=== PATIENT | male | born 1975 | race Caucasian/White ===

== ENCOUNTER 2020-01-17 12:05 | Outpatient (REF) | payer OTHER, SELFPAY | END 2020-01-17 12:06 | disposition home or self-care (01) | LOC: HO.LAB 12:05 | PROVIDERS: Visit Provider Internal Medicine | DX: Z20.828 Contact with and (suspected) exposure to other viral communicable diseases (principal) | CPT/HCPCS: 87635 ==

== ENCOUNTER 2020-04-18 15:10 | Outpatient (REF) | payer OTHER, SELFPAY | END 2020-04-18 15:11 | disposition home or self-care (01) | LOC: HO.LAB 15:10 | PROVIDERS: Visit Provider Internal Medicine | DX: Z20.822 Contact with and (suspected) exposure to COVID-19 (principal) | CPT/HCPCS: 36415; C9803; U0003 ==

== ENCOUNTER 2020-06-29 15:50 | Outpatient (REF) | payer OTHER, SELFPAY ==
--- NOTE | ~2020-06-29 | XR_ITS ---
EXAMINATION: XR KNEE, BILATERAL CLINICAL INFORMATION: Pain in bilateral knee. COMPARISON: None TECHNIQUE: 4 views each knee. FINDINGS: Left knee: There is no visible acute fracture, dislocation or subluxation. The tricompartment joint space is maintained normal. No bony erosive changes, loose bodies or joint effusion seen. Right knee: There is no visible acute fracture, dislocation or subluxation. The tricompartment joint space is maintained normal. There are no bony erosive changes, loose bodies or joint effusion. XR/XR knee LT 3V IMPRESSION: Unremarkable bilateral knee exam.
--- NOTE | ~2020-06-29 | XR_ITS ---
EXAMINATION: XR KNEE, BILATERAL CLINICAL INFORMATION: Pain in bilateral knee. COMPARISON: None TECHNIQUE: 4 views each knee. FINDINGS: Left knee: There is no visible acute fracture, dislocation or subluxation. The tricompartment joint space is maintained normal. No bony erosive changes, loose bodies or joint effusion seen. Right knee: There is no visible acute fracture, dislocation or subluxation. The tricompartment joint space is maintained normal. There are no bony erosive changes, loose bodies or joint effusion. XR/XR knee RT 3V IMPRESSION: Unremarkable bilateral knee exam.
== END 2020-06-29 15:51 | disposition home or self-care (01) ==
LOC: HO.XRAY 15:50
PROVIDERS: PCP Internal Medicine; Visit Provider Internal Medicine
DX: M25.561 Pain in right knee (principal); M25.562 Pain in left knee
CPT/HCPCS: 73562